=== PATIENT | female | born 1980 | race Caucasian/White ===

== ENCOUNTER 2017-11-05 17:44 | Emergency (ER) | payer BC, OTHER ==
[~2017-11-05] VITALS: Ht 172.7 cm; Wt 163.0 kg
[2017-11-05 17:48] VITALS: TEMP 37.5; Ht 172.7 cm; Wt 163.0 kg
[2017-11-05] MEDS ORDERED: SODIUM CHLORIDE 0.9% 1000ML 1,000 ML IV STA (18:03)
[2017-11-05] MEDS ORDERED: MoRPHine SULFATE 10 MG/ML CARP/VIAL IV STA (18:03)
[2017-11-05] MEDS ORDERED: ONDANSETRON INJ 2 MG/ML 2 ML VIAL IV STA (18:03)
[2017-11-05] MEDS ORDERED: OPTIRAY 320 IV PRN (18:15)
[2017-11-05 18:35] LABS: URINE APPEARANCE CLEAR (CLEAR); URINE COLOR ORANGE; URINE EPITHELIAL CELL AUTO >30 /lpf (0-5); URINE NITRITE NEG (NEG); URINE PH 6.5 (4.5-7.5); URINE SPECIFIC GRAVITY 1.021 (1.000-1.030); UROBILINOGEN POS (NEG); ZZUR CULT IF INDIC CLEAN CATCH NO
[2017-11-05 18:41] LABS: MANUAL MICROSCOPIC REQUIRED? NO; REVIEW REQ? NO; URINE BILIRUBIN NEG (NEG)
--- NOTE | 2017-11-05 18:42 | DIAGNOSTIC IMAGING REPORT ---
PA CHEST RADIOGRAPH AND UPRIGHT AND SUPINE AP RADIOGRAPHS OF THE ABDOMEN CLINICAL HISTORY: Lower abdominal pain. COMPARISON STUDY: No previous studies for comparison. FINDINGS: Lung volumes are at the lower limits of normal. There is no pneumothorax or pleural effusion. Cardiac size is normal. There is no evidence of pulmonary edema. There is no consolidation. No free air is present. The bowel gas pattern is normal. Upper abdominal surgical clips are noted. IMPRESSION: 1. No free air or evidence of bowel obstruction. 2. No acute cardiopulmonary findings. Electronically signed by: Francisco J Nelson M.D. 11/05/2017 6:40 PM Dictated Date/Time: 11/05/2017 6:38 PM
[2017-11-05 19:05] LABS: BASO % 0.1 %; BASO ABS # 0.02 K/uL (0-0.2); COMPLETE YES; IG% 0.3 %; LYMPH % 5.8 %; LYMPH ABS # 1.18 K/uL (1.2-3.4); MEAN CELL VOLUME 83.8 fL (80-100); MEAN CORPUSCULAR HEMOGLOBIN 28.1 pg (25-34); MEAN CORPUSCULAR HGB CONC 33.5 g/dl (32-36); MEAN PLATELET VOLUME 11.7 fL (7.4-10.4); MONO % 6.7 %; NEUT % 87.1 %; PLATELET COUNT 178 K/uL (130-400); RED BLOOD COUNT 5.13 M/uL (4.2-5.4); WHITE BLOOD COUNT 20.46 K/uL (4.8-10.8)
[2017-11-05] MEDS ORDERED: IBUP-1050 PO (19:08)
[2017-11-05] MEDS ORDERED: ACET-1256 PO (19:08)
[2017-11-05 19:21] LABS: BUN/CREATININE RATIO 12.1 (10-20); CALCIUM 9.1 mg/dl (8.5-10.1); CREATININE 0.64 mg/dl (0.60-1.20); POTASSIUM 3.5 mmol/L (3.5-5.1)
[2017-11-05] MEDS ORDERED: HYDROmorphone INJ 2 MG/ML SYR/VIAL IV STA (19:26)
[2017-11-05] MEDS ORDERED: DiphenhydrAMINE HCL 50 MG/ML VIAL IV STA (19:48)
--- NOTE | 2017-11-05 20:59 | DIAGNOSTIC IMAGING REPORT ---
CT OF THE ABDOMEN AND PELVIS WITH CONTRAST CLINICAL HISTORY: Lower abdominal pain, nausea, vomiting and fever. COMPARISON STUDY: Chest radiograph and abdominal series performed earlier today. TECHNIQUE: Following IV administration of 94 mL of Optiray-320, axial images of the abdomen and pelvis were obtained from the lung bases to the proximal femurs. Images were reviewed in the axial, sagittal, and coronal planes. IV contrast was administered without complication. A dose lowering technique was utilized adhering to the principles of ALARA. Oral contrast was administered. CT DOSE: 2201.36 mGy.cm FINDINGS: Plate Colorer image demonstrates prominence for the contour for the ascending aorta. Mild hepatosplenomegaly is noted. There is probable fatty infiltration of the liver. There is no biliary ductal dilatation status post cholecystectomy. A defect within the upper pole the left kidney could be postsurgical or reflect scarring. There is no hydronephrosis. A left lateral abdominal wall fat-containing hernia is noted. There is no bowel obstruction. Note is made of sigmoid diverticulosis. There is wall thickening of the proximal sigmoid colon with moderate pericolonic infiltration. There is no abscess. A tract of gas is noted along the anterior wall of the proximal sigmoid colon. Images are degraded by artifact related to body wall contacting the gantry. A small fat containing umbilical hernia is present. There are no suspicious osseous lesions. There are prominent retroperitoneal lymph nodes but none are pathologically enlarged. IMPRESSION: 1. Acute sigmoid diverticulitis. Moderate pericolonic infiltration. No abscess. Possible minimal extraluminal gas. 2. Prominence for the contour for the ascending aorta shown on paint mixer hand image. This is probably artifactual however a follow-up nonemergent CTA of the chest is recommended to exclude an aneurysm. 3. Mild hepatosplenomegaly. Fatty infiltration of the liver. Electronically signed by: Francisco J Nelson M.D. 11/05/2017 8:58 PM Dictated Date/Time: 11/05/2017 8:48 PM
[2017-11-05] MEDS ORDERED: METRONIDAZOLE 250 MG TAB PO STA (21:07)
[2017-11-05] MEDS ORDERED: CIPROFLOXACIN 500 MG TAB PO STA (21:07)
[2017-11-05] MEDS ORDERED: CIPR-255 PO (21:13)
[2017-11-05] MEDS ORDERED: OXYC1TAB3 PO (21:13)
[2017-11-05] MEDS ORDERED: METR-163 PO (21:13)
[2017-11-05] MEDS ORDERED: ONDA4TAB10 SL (21:13)
[2017-11-05] MEDS ORDERED: ONDANSETRON HOME PACK 4MG OD TAB PO ONE (21:15)
[2017-11-05] MEDS ORDERED: OXYCODONE IR HOME PACK PO ONE (21:15)
--- NOTE | 2017-11-05 21:15 | EMERGENCY ROOM VISIT NOTE ---
History First contact with patient: 17:50 Chief Complaint: ABDOMINAL PAIN Stated Complaint: STOMACH PAIN,SICK,FEVER,CANT OR DRINK History of Present Illness The patient is a 37 year old female who presents to the Emergency Room with complaints of lower abdominal pain, nausea and vomiting which started yesterday around 5 PM. She states the pain has been persistent and getting progressively worse. The patient also admits to nausea and vomiting and not been able to keep anything down for 24 hours. The patient states she had a normal bowel movement this morning. The patient denies any diarrhea, hematochezia or melena. The patient denies any fever. She has been taking Tylenol and ibuprofen for the pain without any relief. The patient denies any urinary symptoms of frequency, urgency, dysuria or hematuria. The patient denies any vaginal discharge. The patient admits to a cholecystectomy and 2 C-sections and an adrenal gland tumor removed. Review of Systems 10 system review was performed and was negative unless stated otherwise history of present illness. Past Medical/Surgical History Cholecystectomy, 2 C-sections, adrenal tumor removed Social History Smoking Status: Never Smoker Smokeless Tobacco Use: No Alcohol Use: none Drug Use: none Marital Status: single Housing Status: other (lives with her 2 sons.) Occupation Status: employed Current/Historical Medications Scheduled PRN Acetaminophen (Tylenol), 1,000 MG PO DIRECTED PRN for Pain or Fever Ibuprofen (Advil), 800 MG PO DIRECTED PRN for Pain or Fever Allergies Coded Allergies: Penicillins (Verified Allergy, Severe, HIVES-RASH, 11/05/17) Iodine (Verified Allergy, Intermediate, TOPICALLY-SKIN REDDENED, "FELT LIKE IT WAS ON FIRE"., 11/05/17) Pertussis Vaccine (Verified Allergy, Intermediate, RASH, 11/05/17) Physical Exam Vital Signs Date Time Temp Pulse Resp B/P (MAP) Pulse Ox O2 Delivery O2 Flow Rate FiO2 11/05/17 20:00 108 101/64 94 11/05/17 17:48 37.5 105 18 119/69 94 Room Air Physical Exam GENERAL: Morbidly obese 37-year-old white female appears uncomfortable secondary to pain. MENTAL Status: Alert and oriented 3. MOUTH: Mucosa is slightly dry. NECK: Supple, no lymphadenopathy noted. No carotid bruits noted. LUNGS: Clear auscultation without wheezes rales or rhonchi. CARDIAC: Regular rate and rhythm without murmur. Pulses is full and equal throughout. BACK: No CVA tenderness noted. ABDOMEN: Positive bowel sounds all 4 quadrants. Soft, patient has tenderness over the entire lower abdomen. Difficult to evaluate for organomegaly or masses secondary to patient's size. EXTREMITIES: No cyanosis or edema noted. Medical Decision & Procedures ER Provider Diagnostic Interpretation: CT OF THE ABDOMEN AND PELVIS WITH CONTRAST CLINICAL HISTORY: Lower abdominal pain, nausea, vomiting and fever. COMPARISON STUDY: Chest radiograph and abdominal series performed earlier today. TECHNIQUE: Following IV administration of 94 mL of Optiray-320, axial images of the abdomen and pelvis were obtained from the lung bases to the proximal femurs. Images were reviewed in the axial, sagittal, and coronal planes. IV contrast was administered without complication. A dose lowering technique was utilized adhering to the principles of ALARA. Oral contrast was administered. CT DOSE: 2201.36 mGy.cm FINDINGS: Visual Designer image demonstrates prominence for the contour for the ascending aorta. Mild hepatosplenomegaly is noted. There is probable fatty infiltration of the liver. There is no biliary ductal dilatation status post cholecystectomy. A defect within the upper pole the left kidney could be postsurgical or reflect scarring. There is no hydronephrosis. A left lateral abdominal wall fat-containing hernia is noted. There is no bowel obstruction. Note is made of sigmoid diverticulosis. There is wall thickening of the proximal sigmoid colon with moderate pericolonic infiltration. There is no abscess. A tract of gas is noted along the anterior wall of the proximal sigmoid colon. Images are degraded by artifact related to body wall contacting the gantry. A small fat containing umbilical hernia is present. There are no suspicious osseous lesions. There are prominent retroperitoneal lymph nodes but none are pathologically enlarged. IMPRESSION: 1. Acute sigmoid diverticulitis. Moderate pericolonic infiltration. No abscess. Possible minimal extraluminal gas. 2. Prominence for the contour for the ascending aorta shown on electric mule operator image. This is probably artifactual however a follow-up nonemergent CTA of the chest is recommended to exclude an aneurysm. 3. Mild hepatosplenomegaly. Fatty infiltration of the liver. Electronically signed by: Francisco J Nelson M.D. 11/05/2017 8:58 PM Dictated Date/Time: 11/05/2017 8:48 PM PA CHEST RADIOGRAPH AND UPRIGHT AND SUPINE AP RADIOGRAPHS OF THE ABDOMEN CLINICAL HISTORY: Lower abdominal pain. COMPARISON STUDY: No previous studies for comparison. FINDINGS: Lung volumes are at the lower limits of normal. There is no pneumothorax or pleural effusion. Cardiac size is normal. There is no evidence of pulmonary edema. There is no consolidation. No free air is present. The bowel gas pattern is normal. Upper abdominal surgical clips are noted. IMPRESSION: 1. No free air or evidence of bowel obstruction. 2. No acute cardiopulmonary findings. Electronically signed by: Francisco J Nelson M.D. 11/05/2017 6:40 PM Dictated Date/Time: 11/05/2017 6:38 PM Laboratory Results 11/05/17 18:50 Red Blood Count 5.13, Mean Corpuscular Volume 83.8, Mean Corpuscular Hemoglobin 28.1, Mean Corpuscular Hemoglobin Concent 33.5, Mean Platelet Volume 11.7, Neutrophils (%) (Auto) 87.1, Lymphocytes (%) (Auto) 5.8, Monocytes (%) (Auto) 6.7, Eosinophils (%) (Auto) 0.0, Basophils (%) (Auto) 0.1, Neutrophils # (Auto) 17.81, Lymphocytes # (Auto) 1.18, Monocytes # (Auto) 1.38, Eosinophils # (Auto) 0.00, Basophils # (Auto) 0.02 11/05/17 18:50 Test 11/05/17 18:15 11/05/17 18:50 11/05/17 19:31 Urine Color ORANGE Urine Appearance CLEAR (CLEAR) Urine pH 6.5 (4.5-7.5) Urine Specific [place] 1.021 (1.000-1.030) Urine Protein NEG (NEG) Urine Glucose (UA) NEG (NEG) Urine Ketones 1+ (NEG) Urine Occult Blood NEG (NEG) Urine Nitrite NEG (NEG) Urine Bilirubin NEG (NEG) Urine Urobilinogen POS (NEG) Urine Leukocyte Esterase TRACE (NEG) Urine WBC (Auto) 1-5 /hpf (0-5) Urine RBC (Auto) 0-4 /hpf (0-4) Urine Hyaline Casts (Auto) 1-5 /lpf (0-5) Urine Epithelial Cells (Auto) >30 /lpf (0-5) Urine Bacteria (Auto) NEG (NEG) White Blood Count 20.46 K/uL (4.8-10.8) Red Blood Count 5.13 M/uL (4.2-5.4) Hemoglobin 14.4 g/dL (12.0-16.0) Hematocrit 43.0 % (37-47) Mean Corpuscular Volume 83.8 fL (80-100) Mean Corpuscular Hemoglobin 28.1 pg (25-34) Mean Corpuscular Hemoglobin Concent 33.5 g/dl (32-36) Platelet Count 178 K/uL (130-400) Mean Platelet Volume 11.7 fL (7.4-10.4) Neutrophils (%) (Auto) 87.1 % Lymphocytes (%) (Auto) 5.8 % Monocytes (%) (Auto) 6.7 % Eosinophils (%) (Auto) 0.0 % Basophils (%) (Auto) 0.1 % Neutrophils # (Auto) 17.81 K/uL (1.4-6.5) Lymphocytes # (Auto) 1.18 K/uL (1.2-3.4) Monocytes # (Auto) 1.38 K/uL (0.11-0.59) Eosinophils # (Auto) 0.00 K/uL (0-0.5) Basophils # (Auto) 0.02 K/uL (0-0.2) RDW Standard Deviation 41.0 fL (36.4-46.3) RDW Coefficient of Variation 13.6 % (11.5-14.5) Immature Granulocyte % (Auto) 0.3 % Immature Granulocyte # (Auto) 0.07 K/uL (0.00-0.02) Anion Gap 9.0 mmol/L (3-11) Est Creatinine Clear Calc Drug Dose 192.9 ml/min Estimated GFR () 130.3 Estimated GFR (Non- 112.4 BUN/Creatinine Ratio 12.1 (10-20) Calcium Level 9.1 mg/dl (8.5-10.1) Total Bilirubin 1.8 mg/dl (0.2-1) Direct Bilirubin 0.4 mg/dl (0-0.2) Aspartate Amino Transf (AST/SGOT) 13 U/L (15-37) Alanine Aminotransferase (ALT/SGPT) 30 U/L (12-78) Alkaline Phosphatase 83 U/L (45-117) Total Protein 7.9 gm/dl (6.4-8.2) Albumin 3.6 gm/dl (3.4-5.0) Lipase 68 U/L (73-393) Lactic Acid Level 1.0 mmol/L (0.4-2.0) Medications Administered Medications (Trade) Dose Ordered Sig/Kamari Route Start Time Stop Time Status Last Admin Dose Admin Sodium Chloride 1,000 ml @ 999 mls/hr Q1H1M STAT IV 11/05/17 18:03 11/05/17 19:03 DC 11/05/17 18:03 999 MLS/HR Ondansetron HCl (Zofran Inj) 4 mg NOW STAT IV 11/05/17 18:03 11/05/17 18:08 DC 11/05/17 18:49 4 MG Morphine Sulfate (MoRPHine SULFATE INJ) 6 mg NOW STAT IV 11/05/17 18:03 11/05/17 18:08 DC 11/05/17 18:49 6 MG Hydromorphone HCl (Dilaudid Inj) 2 mg NOW STAT IV 11/05/17 19:26 11/05/17 19:27 DC 11/05/17 19:38 2 MG ED Course The patient was evaluated. The patient's EMR medication list were reviewed. IV access was obtained. The patient was given 1 L normal saline wide-open. CBC and differential, renal profile, LFTs and lipase levels were ordered. Urinalysis was ordered. Abdominal series x-ray was ordered and was interpreted by the radiologist as above without any acute findings.. Also ordered a CT of the abdomen and pelvis to start prepping the patient if the abdominal series is negative. Since the x-ray was negative we will go ahead with the CT scan. The patient was given morphine 6 mg IV for pain and Zofran 4 mg IV for nausea. The patient's urine revealed elevated urobilinogen otherwise was unremarkable. Labs are reviewed. The patient's white count was elevated at 20,000. CMP revealed elevated bilirubin otherwise unremarkable. Lactic acid is normal. Blood cultures were ordered. The patient was reevaluated and was still in significant pain and therefore was given Dilaudid 2 mg IV. The patient was reevaluated and was resting comfortably. CT of the abdomen was interpreted by the radiologist with findings consistent with sigmoid diverticulitis as well as fatty liver. The patient was informed of the findings. The patient's case was discussed with Dr. Connors who agreed with treatment plan. I gave the patient options that if she did not feel well enough we would admit her or we could send her home on oral antibiotics and clear liquid diet. The patient requested to go home. The patient was discharged home in stable condition with a family member driving. Medical Decision Differential diagnoses include reflux, gastritis, gastroenteritis, pancreatitis , cholelithiasis, cholecystitis, appendicitis, mesenteric ischemia, pyelonephritis, urinary tract infection, renal colic, diverticulitis, shingles, bowel obstruction, intussusception, hernia, ovarian torsion, ruptured ovarian cyst, ectopic , . Impression Primary Impression: Diverticulitis large intestine Departure Information Dispostion Home / Self-Care Condition GOOD Prescriptions Oxycodone Immediate Rel Tab (ROXICODONE IR) 5 Mg Tab 1-2 TAB PO Q4H Y for Pain, #24 TAB Prov: Rachel Stinson PA-C 11/05/17 Ondasetron Odt (ZOFRAN ODT) 4 Mg Tab 4 MG SL Q6H for Nausea, #10 TAB Prov: Rachel Stinson PA-C 11/05/17 Ciprofloxacin Hcl (CIPRO) 500 Mg Tab 500 MG PO BID for 10 Days, #20 TAB Prov: Rachel Stinson PA-C 11/05/17 Metronidazole (Flagyl) 500 Mg Tab 500 MG PO BID for 10 Days, #20 TAB Prov: Rachel Stinson PA-C 11/05/17 Forms Call Back Authorization, HOME CARE DOCUMENTATION FORM, IMPORTANT VISIT INFORMATION Patient Instructions ED Diverticulitis, [facility] Additional Instructions Clear liquid diet for the next 48 hours. Advance diet slowly as tolerated. Take Cipro and Flagyl as directed. Take Zofran as needed for nausea. Tylenol as needed for pain and fever. For more severe pain. Take OxyIR as directed. Do not drive while taking the OxyIR. Call your family doctor tomorrow for a follow-up appointment on Thursday. If symptoms worsen over the weekend return to ER immediately. Problem Qualifiers Primary Impression: Diverticulitis large intestine Diverticulitis bleeding: without bleeding Diverticulitis complication: without perforation or abscess Qualified Codes: K57.32 - Diverticulitis of large intestine without perforation or abscess without bleeding
[2017-11-05 21:49] VITALS: BP 102/68; PULSE 109; O2SAT 93
== END 2017-11-05 21:50 | disposition home or self-care (01) ==
LOC: C.EDB 17:45
DX: K57.32 Diverticulitis of large intestine without perforation or abscess without bleeding (principal); Z90.49 Acquired absence of other specified parts of digestive tract; Z79.899 Other long term (current) drug therapy

== ENCOUNTER → 2017-12-08 | Outpatient (CLI) | payer OTHER ==
[~2017-12-08] MED LIST: ACET-1256 PO; CIPR-255 PO; IBUP-1050 PO; ONDA4TAB10 SL; OPTIRAY 320 IV PRN; OXYC1TAB3 PO
--- NOTE | 2017-12-08 10:46 | DIAGNOSTIC IMAGING REPORT ---
ABDOMEN AND PELVIS CT WITH IV AND ORAL CONTRAST CT DOSE: 2514.98 mGy.cm HISTORY: Left lower quadrant abdominal pain. TECHNIQUE: Multiaxial CT images of the abdomen and pelvis were performed following the use of intravenous and oral contrast. A dose lowering technique was utilized adhering to the principles of ALARA. COMPARISON STUDY: Abdomen and pelvis CT 11/05/2017. FINDINGS: The lung bases are clear. Cholecystectomy. The liver, spleen, pancreas, and right kidney are unremarkable. Left suprarenal surgical clips are noted. The left adrenal gland may be surgically absent. Focal scarring within the upper pole the left kidney, unchanged. No hydronephrosis. Stable 1 cm soft tissue nodule abutting the posterior aspect of the spleen. This may represent a small accessory spleen. Stable retroperitoneal lymph nodes which measure subcentimeter in short axis diameter. No evidence for bowel obstruction. The bladder, uterus, and right ovary are unremarkable. Colonic diverticulosis. Redemonstration of the proximal to mid sigmoid diverticulitis. Small focus of extraluminal gas inferior to the sigmoid colon has slightly progressed. Surrounding inflammatory change has improved. However, there is increased in size in the left adnexal multiseptated cystic structure inferior to the inflamed sigmoid colon. This measures 6.1 x 3.6 cm. This appears to represent the left ovary. However, the increase in size in the cystic structure raises the possibility of a tubo-ovarian abscess secondary to the adjacent diverticulitis. Tiny fat-containing hernia within the left lateral abdominal wall, unchanged. Normal appendix. IMPRESSION: 1. Redemonstration of the acute proximal to mid sigmoid diverticulitis. The surrounding inflammatory change has slightly improved. However, the small focus of extraluminal gas has slightly progressed. In addition, there is been increase in size in a 6.1 x 3.6 cm multiseptated cystic structure within the left adnexa which appears to represent the left ovary. Therefore, this is highly suspicious for a tubo-ovarian abscess secondary to the adjacent acute diverticulitis. Follow-up surgical/gynecologic consultation is recommended. 2. Additional findings as described above. 3. These findings were called/faxed to the referring physician's office following dictation. Electronically signed by: Hakan Bustos M.D. 12/08/2017 10:45 AM Dictated Date/Time: 12/08/2017 10:28 AM
== END | disposition home or self-care (01) ==
LOC: C.CTS 09:25
PROVIDERS: ATTEND Physician Assistant
DX: R10.32 Left lower quadrant pain (principal)